=== PATIENT | male | born 1990 | race Caucasian/White ===

== ENCOUNTER 2016-06-18 17:37 | Emergency (ER) | payer OTHER ==
--- NOTE | 2016-06-18 17:47 | ER Document Report ---
ED Medical Screen (RME) - General Stated Complaint: RAPID HEARTBEAT Notes: History of palpitations felt a little bit worse today previously had been attributed to anxiety. I greeted and performed a rapid initial assessment of this patient. Comprehensive ED assessment and evaluation of the patient, analysis of test results and completion of the medical decision making process will be conducted by additional ED providers.
--- NOTE | 2016-06-18 18:36 | ER Document Report ---
ED Cardiac - General Chief Complaint: Palpitations Stated Complaint: RAPID HEARTBEAT Time seen by provider: 18:36 Mode of Arrival: Ambulatory Information source: Patient TRAVEL OUTSIDE OF THE [place] IN LAST 30 DAYS: No - HPI Patient complains to provider of: Palpitations, Shortness of breath Use of: Caffeine Was the onset of pain: Sudden Is the pain a: New problem Quality of pain: None Severity now: None Severity at worst: Mild Pain level currently: Denies Chest pain precipitating factors: At Rest Cardiac risk factors: Smoker Positive cardiac history: No Associated symptoms: Palpitations Exacerbated by: Denies Relieved by: Nothing Similar symptoms previously: Yes Recently seen / treated by doctor: No Notes: Patient is a 26-year-old male with a history of anxiety, who presents to the emergency room complaining of palpitations with the sensation of a fast irregular heartbeat, shortness of breath, chest tightness, states he symptoms started earlier today and lasted approximately one hour, he reports a history of similar symptoms previously with anxiety attacks but this one seemed to be more severe than usual, he denies any chest pain, he does report that he has been under increased stress recently, and does drink a fair amount of caffeine throughout the day, he reports that he was diagnosed with anxiety by the [facility] approximately 6 months ago and was supposed to receive some medication in the mail for treatment of this but he never did and he never followed up, patient is a smoker at time of initial evaluation he reports symptoms are resolved - Related Data Allergies/Adverse Reactions: No Known Allergies Allergy (Verified 06/18/16 18:29) Past Medical History - General Information source: Patient - Social History Smoking Status: Current Every Day Smoker Chew tobacco use (# tins/day): No Frequency of alcohol use: None Drug Abuse: None Family History: Reviewed & Not Pertinent Patient has suicidal ideation: No Patient has homicidal ideation: No Renal/ Medical History: Denies: Hx Peritoneal Dialysis Review of Systems - Review of Systems Constitutional: No symptoms reported EENT: No symptoms reported Cardiovascular: See HPI Respiratory: No symptoms reported Gastrointestinal: No symptoms reported Genitourinary: No symptoms reported Male Genitourinary: No symptoms reported Musculoskeletal: No symptoms reported Skin: No symptoms reported Hematologic/Lymphatic: No symptoms reported Neurological/Psychological: No symptoms reported -: Yes All other systems reviewed and negative Physical Exam - Vital signs Vitals: Temp Pulse BP Pulse Ox 98.4 F 84 143/89 H 100 06/18/16 17:58 06/18/16 17:58 06/18/16 17:58 06/18/16 17:58 Interpretation: Normal - General General appearance: Appears well, Alert - HEENT Head: Normocephalic, Atraumatic Eyes: Normal Pupils: PERRL - Respiratory Respiratory status: No respiratory distress Chest status: Nontender Breath sounds: Normal Chest palpation: Normal - Cardiovascular Rhythm: Regular Heart sounds: Normal auscultation Murmur: No - Abdominal Inspection: Normal Distension: No distension Bowel sounds: Normal Tenderness: Nontender Organomegaly: No organomegaly - Back Back: Normal, Nontender - Extremities General upper extremity: Normal inspection, Nontender, Normal color, Normal ROM , Normal temperature General lower extremity: Normal inspection, Nontender, Normal color, Normal ROM , Normal temperature, Normal weight bearing. No: Hi's sign - Neurological Neuro grossly intact: Yes Cognition: Normal Orientation: AAOx4 Isabelle Coma Scale Eye Opening: Spontaneous [place] Coma Scale Verbal: Oriented [place] Coma Scale Motor: Obeys Commands Isabelle Coma Scale Total: 15 Speech: Normal Motor strength normal: LUE, RUE, LLE, RLE Sensory: Normal - Psychological Associated symptoms: Normal affect, Normal mood - Skin Skin Temperature: Warm Skin Moisture: Dry Skin Color: Normal Course - Re-evaluation Re-evalutation: 06/18/16 20:20 Patient resting comfortably, reports no further episodes symptoms, lab and imaging findings were discussed with him at bedside, symptoms likely related to panic attack or anxiety, patient will be discharged with a prescription for a small amount of volume to be used when necessary, he was advised to follow-up at the [facility] as soon as possible for further evaluation and treatment, patient acknowledges understanding and agreement with this plan - Vital Signs Vital signs: Temp Pulse Resp BP Pulse Ox 98.4 F 84 17 143/89 H 100 06/18/16 17:58 06/18/16 17:58 06/18/16 18:21 06/18/16 17:58 06/18/16 18:21 - Laboratory Result Diagrams: 06/18/16 18:56 06/18/16 18:56 Laboratory results interpreted by me: 06/18/16 06/18/16 18:56 18:56 WBC 10.6 H Glucose 64 L ALT 19 L Creatine Kinase 330 H - Diagnostic Test Radiology reviewed: Image reviewed, Reports reviewed - EKG Interpretation by Me EKG shows normal: Sinus rhythm Rate: Normal Rhythm: Torsades Discharge - Discharge Clinical Impression: Palpitations, Anxiety Condition: Stable Disposition: HOME, SELF-CARE Instructions: Palpitations (Irregular or Rapid Heartrate) ([facility]), Benzodiazepines ([facility]) Additional Instructions: Follow up with your primary care provider in one to 2 days. Return to the emergency room immediately if symptoms worsen or any additional concerns. Prescriptions: Diazepam [Valium] 2 mg PO BID PRN #10 tablet PRN Reason:
[2016-06-18 19:09] LABS: ABSOLUTE BASOPHILS # (AUTO) 0.1 10^3/uL (0.0-0.2); ABSOLUTE EOSINOPHILS # (AUTO) 0.1 10^3/uL (0.0-0.6); ABSOLUTE LYMPHOCYTES (AUTO) 2.2 10^3/uL (0.5-4.7); ABSOLUTE MONOCYTES (AUTO) 0.8 10^3/uL (0.1-1.4); ABSOLUTE NEUT (AUTO) 7.5 10^3/uL (1.7-8.2); BASOPHILS % (AUTO) 0.5 % (0-2); EOSINOPHILS % (AUTO) 1.2 % (0-6); HEMATOCRIT 41.5 % (37.9-51.0); HEMOGLOBIN 13.9 g/dL (13.5-17.0); HGB HCT DIFFERENCE 0.2; LYMPHOCYTES % (AUTO) 20.3 % (13-45); MEAN CORPUSCULAR HEMOGLOBIN 29.2 pg (27.0-33.4); MEAN CORPUSCULAR HGB CONC 33.6 g/dL (32.0-36.0); MEAN CORPUSCULAR VOLUME 87 fl (80-97); MONOCYTES % (AUTO) 7.2 % (3-13); RED BLOOD COUNT 4.77 10^6/uL (4.35-5.55); SEGMENTED NEUTROPHILS % (AUTO) 70.8 % (42-78); WHITE BLOOD COUNT 10.6 10^3/uL (4.0-10.5)
[2016-06-18 19:27] LABS: ALANINE AMINOTRANSFERASE 19 U/L (21-72); ALBUMIN 4.2 g/dL (3.5-5.0); ALKALINE PHOSPHATASE 53 U/L (38-126); ANION GAP 10 (5-19); ASPARTATE AMINO TRANSFERASE 23 U/L (17-59); BILIRUBIN,TOTAL 0.3 mg/dL (0.2-1.3); BLOOD UREA NITROGEN 17 mg/dL (7-20); CALCIUM 9.3 mg/dL (8.4-10.2); CARBON DIOXIDE 30 mmol/L (22-30); CHLORIDE 102 mmol/L (98-107); CREATINE KINASE 330 U/L (55-170); CREATININE RESULT 0.98 mg/dL (0.52-1.25); GLUCOSE 64 mg/dL (75-110); POTASSIUM 3.8 mmol/L (3.6-5.0); SODIUM 141.8 mmol/L (137-145); TOTAL PROTEIN 7.1 g/dL (6.3-8.2)
[2016-06-18 19:39] LABS: CREATINE KINASE MB 0.95 ng/mL (<4.55)
[2016-06-18 19:48] LABS: TROPONIN I < 0.012 ng/mL
[2016-06-18 20:23] VITALS: BP 125/80
--- NOTE | 2016-06-19 10:12 | EKG REPORT ---
SEVERITY:- ABNORMAL ECG - SINUS RHYTHM NONSPECIFIC T ABNORMALITIES, INFERIOR LEADS : Confirmed by: Barb Liu MD 19-Jun-2016 10:11:49
== END 2016-06-18 20:32 | disposition home or self-care (01) ==
LOC: ER 17:37
DX: R00.2 Palpitations (principal); F41.8 Other specified anxiety disorders; R06.02 Shortness of breath; F17.200 Nicotine dependence, unspecified, uncomplicated
CPT/HCPCS: 36415; 71020; 80053; 82550; 82553; 84443; 84484; 85025; 93005; 93010; 99285

== ENCOUNTER 2018-05-04 19:56 | Emergency (ER) | payer OTHER ==
[2018-05-04 21:33] LABS: APPEARANCE,URINE SLIGHTLY-CLOUDY; BILIRUBIN,URINE NEGATIVE (NEGATIVE); COLOR,URINE YELLOW; GLUCOSE, URINE NEGATIVE (NEGATIVE); KETONES,URINE NEGATIVE (NEGATIVE); LEUKOCYTE ESTERASE,URINE NEGATIVE (NEGATIVE); NITRITE,URINE NEGATIVE (NEGATIVE); PROTEIN,URINE 30 mg/dL (NEGATIVE); URINE SPECIFIC GRAVITY 1.026
[2018-05-04 22:39] LABS: CHLAM PCR NOT DETECTED (NOT DETECT); GON PCR NOT DETECTED (NOT DETECT)
--- NOTE | 2018-05-04 22:59 | ER Document Report ---
ED General - General Chief Complaint: Abdominal Pain Stated Complaint: BLADDER PAIN,HEADACHE Time Seen by Provider: 05/04/18 22:02 TRAVEL OUTSIDE OF THE [place] IN LAST 30 DAYS: No - HPI Patient complains to provider of: Suprapubic abdominal pain Onset: Yesterday Severity: Mild Pain Level: 2 Notes: 27-year-old otherwise healthy male presents to the emergency department for pain in his bladder, urgency, headache, lightheadedness. He initially thought he was having gas pains but this is unlike anything he had in the past described as throbbing and sharp. He also complains of urinary urgency and slight burning when he urinates. He endorses headache that is been persistent all day, lightheadedness. Denies dizziness, nausea, chest pain, shortness of breath, or any other symptoms. Currently denies flank pain but does endorse about a week ago he was having some right flank pain that lasted about a day. - Related Data Allergies/Adverse Reactions: No Known Allergies Allergy (Verified 06/18/16 18:29) Past Medical History - Social History Smoking Status: Never Smoker Family History: Reviewed & Not Pertinent Renal/ Medical History: Denies: Hx Peritoneal Dialysis Review of Systems - Review of Systems Constitutional: See HPI EENT: See HPI Cardiovascular: See HPI Respiratory: See HPI Gastrointestinal: See HPI Genitourinary: See HPI Male Genitourinary: No symptoms reported Musculoskeletal: No symptoms reported Skin: No symptoms reported Hematologic/Lymphatic: No symptoms reported Neurological/Psychological: No symptoms reported Physical Exam - Vital signs Vitals: Temp Pulse Resp BP Pulse Ox 98.4 F 91 16 144/84 H 98 05/04/18 20:21 05/04/18 20:21 05/04/18 20:21 05/04/18 20:21 05/04/18 20:21 - Notes Notes: Reviewed vital signs and nursing note as charted by RN. CONSTITUTIONAL: Well-appearing, well-nourished, acting appropriately for age HEAD: Normocephalic, atraumatic, no swelling EYES: Conjunctivae clear, no drainage, EOMI, no scleral icterus ENT: External ears without lesions, External auditory canal is patent, no rhinorrhea, Pharynx without erythema or lesions, airway patent, mucous membranes pink and moist CARD: Regular rate and rhythm, no murmurs, no rubs, no gallops, capillary refill < 2 seconds, symmetric pulses RESP: The lungs are clear to auscultation bilaterally, no wheezing, no rales, no rhonchi. Respiratory rate and effort are normal, normal chest excursion. No respiratory distress, no retractions, no stridor, no nasal flaring, no accessory muscle use. ABD/GI: Normal bowel sounds, non-distended, soft, non-tender, no rebound, no guarding, no palpable organomegaly, tenderness to palpation suprapubic area : Both testicles with verticalized no evidence of horizontal li no particular pain or tenderness. No evidence of rash or lesions on penis or meatus. Dense of discharge. EXT: Normal ROM in all joints, non-tender to palpation, no effusions, no edema SKIN: Normal color for age and race, warm, dry, good turgor, no acute lesions noted NEURO: No facial asymmetry, moves all extremities equally, motor and sensory function intact Course - Re-evaluation Re-evalutation: 05/04/18 22:57 Urinalysis negative for UTI, GC or chlamydia. Patient is a man endorses monogamy no suspicion of any other sexual contacts. He said he previously did have gas pain in the area but thinks the quality is different this time. Physical exam overall is benign less the suprapubic tenderness. I have very low suspicion for testicular torsion. With patient's previous flank pain and current suprapubic pain could potentially be related to a kidney stone. Saw his doctor at the [facility] a week or 2 ago for the back pain but was told that it was a muscle strain, but he was pushing a shopping cart at the store and had sudden severe pain that arrested his movement. I do not think a muscle strain would present like that. Also, no evidence of any right lower quadrant tenderness, no fever. At this point I have low suspicion for appendicitis. There was some protein in the urine and I asked the patient his hydration status he said that he drinks a lot of soda and has not drank a lot of water today, although he feels he is hydrated. Specific gravity showed no evidence urine was concentrated. 05/04/18 22:59 05/04/18 23:18 - Vital Signs Vital signs: Temp Pulse Resp BP Pulse Ox 98.4 F 91 16 144/84 H 98 05/04/18 20:21 05/04/18 20:21 05/04/18 20:21 05/04/18 20:21 05/04/18 20:21 - Laboratory Laboratory results interpreted by me: 05/04/18 20:20 Urine Protein 30 H Urine Urobilinogen 2.0 H Discharge - Discharge Clinical Impression: Abdominal pain Qualifiers: Abdominal location: lower abdomen, unspecified Qualified Code(s): R10.30 - Lower abdominal pain, unspecified Condition: Good Disposition: HOME, SELF-CARE Instructions: Abdominal Pain ([facility]) Additional Instructions: Were seen in the emergency department today for abdominal pain located in the region of your bladder. The urinalysis showed no evidence of a urinary tract infection. Also, your exam was reassuring to rule out testicular torsion or even appendicitis. It could be that you were dehydrated and you need to increase your fluid intake. Rest for the next 24-48 hours, increase her fluids , and you can take Tylenol 1000 mg every 6 hours for headache and/or Motrin 400 mg every 6 hours as well. If you develop intractable abdominal pain, you pass out, or you stop urinating or your urine is [employer] color please immediately return to the emergency department. If you have any other concerns at all please return to the emergency department. Referrals: SOLITARIO DICKEY MD [Primary Care Provider] - Follow up as needed
[2018-05-04 23:30] VITALS: BP 128/73
== END 2018-05-04 23:24 | disposition home or self-care (01) ==
LOC: ER 19:56
DX: R10.30 Lower abdominal pain, unspecified (principal); R51 Headache; R42 Dizziness and giddiness
CPT/HCPCS: 81001; 87491; 87591; 99284